=== PATIENT | male | born 1985 | race African-American/Black ===

== ENCOUNTER 2023-05-04 18:34 | Emergency (ER) | payer SELFPAY ==
--- NOTE | ~2023-05-04 | XR_ITS ---
EXAMINATION: XR CHEST CLINICAL INFORMATION: Chest pain COMPARISON: None available. TECHNIQUE: 2 views of the chest were obtained. FINDINGS: No significant abnormality is noted involving the heart, lungs, mediastinum, bony thorax or soft tissues. XR/XR chest 2V IMPRESSION: Unremarkable examination.
--- NOTE | 2023-05-04 19:21 | ED.GENADULT ---
HPI - General Adult General Chief complaint: Weakness Stated complaint: ?Covid Time Seen by Provider: 05/04/23 20:58 Source: patient and field counsel Limitations: no limitations History of Present Illness HPI narrative: 37 yo male no PMH does not see a doctor smokes every day no vaccines for COVID - started with n/v/d body aches, chest pain/trouble breathing and syncope x 2 since Thursday. Family has URI as well. + fevers/chills as well, poor PO intake. unsure if he has COVID MD complaint: viral symptoms Onset (ago): day(s) (4) Location: chest, back and abdomen Radiation: non-radiation Severity: moderate Quality: aching and constant Pain Consistency: constant Relieving factors: rest Exacerbating factors: movement Associated symptoms: chest pain, cough, fever/chills, headaches, loss of appetite, malaise, nausea/vomiting, syncope and weakness Treatments prior to arrival: none Related Data Previous Rx's Medication Instructions Recorded nirmatrelvir 300 mg (150 mg See Rx Instructions PO .COMPLEX 05/05/23 x2)-ritonavir 100 mg tablet,dose #30 ea pack (Paxlovid) ondansetron 4 mg disintegrating 4 mg PO Q8H PRN nausea and 05/05/23 tablet vomiting #20 tabs Allergies Allergy/AdvReac Type Severity Reaction Status Date / Time orange juice [ORANGE JUICE] Allergy Unknown UNKNOWN Unverified 03/22/20 16:16 Review of Systems Review of Systems: Constitutional : No Weight loss, pos Fever, pos Chills ENT/Mouth : No sore throat, No Rhinorrhea Eyes: No Eye Pain, No Swelling Cardiovascular : pos Chest Pain, pos SOB, no Dyspnea on Exertion, No Orthopnea, No Edema, No Palpitations Respiratory : No Cough, No Sputum Gastrointestinal : pos Nausea, pos Vomiting, pos Diarrhea, No abdominal Pain, No Hematochezia, No Melena Genitourinary : No Dysuria, No Urinary Frequency Musculoskeletal : No joint pain, pos Myalgias, No Joint Swelling Skin : No Skin Lesions, No rash Neuro : pos Weakness, No Numbness, pos Dizziness, No Headache, pos syncope Psych : No Anxiety/Panic, No Depression Heme/Lymph: No Bruising, No Lymphadenopathy Endocrine : No Polyuria, No Polydipsia All other systems reviewed and are negative PMFSH Past Medical History Attestation statement: The following information was validated with the patient. Medical History No pertinent past medical history Social History Social History (Updated 05/04/23 @ 21:31 by Janae Norwood DO) Alcohol intake: never Patient Tobacco Use Status: Current everyday Tobacco user Smoked in Last 30 Days: Yes Use of substances other than those prescribed or required for medical reasons: Yes Substance Use Type: Marijuana Last Used Substance: Weeks (ago) Advance Directives: No Advance Directives Information Provided: No Physical Exam ED Vital Signs: Vital Signs - 24 hr 05/04/23 19:24 05/04/23 20:51 05/04/23 22:05 Temperature 98.1 F 99.0 F Pulse Rate 82 88 67 Respiratory Rate 22 H 16 Blood Pressure 111/74 96/55 L Pulse Oximetry 97 98 Oxygen Delivery Method Room Air Room Air 05/04/23 23:40 05/05/23 00:10 Temperature 98.7 F Pulse Rate 68 Respiratory Rate 16 Blood Pressure 144/70 H 106/61 Pulse Oximetry 98 Oxygen Delivery Method Room Air BMI result Body Mass Index 23.2 Appearance: Alert. Oriented X3. No acute distress. Eyes: Pupils equal, round and reactive to light. ENT: Pharynx dry MM Neck: Normal inspection. Neck supple. CVS: Normal heart rate and rhythm. Pulses normal. Respiratory: No respiratory distress. Breath sounds normal. Abdomen: Soft and nontender. Skin: Skin warm and dry. Normal skin color. Normal skin turgor. Extremities: No lower extremity edema. No calf ttp Neuro: Oriented X 3. No motor deficit. No sensory deficit. Course Course Course Narrative: This is an RME: Additional HPI, ROS, PE not included below will be deferred to primary provider. This is a 76-prvs-sox-male, (ASL), unknown med problems, presenting to the ER for evaluation of fever, cough, diarrhea x 3 days. +COVID sick contacts at home. Admitting to SOB, AP Plan: COVID swab Reevaluation(s) Reevaluation #1: after discussion wants paxlovid Medications Administered Discontinued Medications Generic Name Dose Route Start Last Admin Trade Name Freq PRN Reason Stop Dose Admin Sodium Chloride 1,000 mls @ 999 mls/hr 05/04/23 21:15 05/04/23 22:38 Ns IV 05/04/23 22:15 Infused .Q1H1M ROSA Infusion Sodium Chloride 1,000 mls @ 999 mls/hr 05/04/23 23:00 05/04/23 22:59 Ns IV 05/05/23 00:00 999 mls/hr .Q1H1M ROSA Administration Ketorolac Tromethamine 15 mg 05/04/23 21:10 05/04/23 21:28 Ketorolac Tromethamine 15 Mg/Ml Vial IVPUSH 05/04/23 21:11 15 mg ONCE ONE Administration Ondansetron HCl 4 mg 05/04/23 21:10 05/04/23 21:28 Ondansetron Hcl 4 Mg/2 Ml Vial IVPUSH 05/04/23 21:11 4 mg ONCE ONE Administration Medical Decision Making Medical Decision Making [facility] Narrative: 37 yo male who is hearing impaired but otherwise no PMH and does not go to the doctors, vaccines not UTD here with c/o covid symptoms including chest pain/shorntess of breath and syncope x 2. At this time will need labs, IVF, supportive medications - EKG, troponin, ddimer. He is eating at the bedside right now. Will need PE work up and lyte workup - he also has T wave inversions and no known prior EKGs Differential Diagnosis Differential Diagnoses: The differential diagnosis associated with the presentation includes COVID, lyte abnormality, VTE, myocarditis Admission/Observation Consideration of admission/observation: Escalation of care including admission/observation considered feels much better, VS improving, no pneumonia - repeat trop normal, tolerating PO 2nd EKG normal - leads changed by tech as well Lab Data [facility] Lab Attestation statement: I reviewed the patient's lab results. 05/04/23 19:58 05/04/23 19:58 Labs: Lab Results 05/04/23 05/04/23 05/04/23 Range/Units 19:33 19:58 22:04 WBC 4.9 (4.8-10.8) X10*3/uL RBC 5.34 (4.60-5.80) X10*6/uL Hgb 15.5 (14.0-18.0) g/dl Hct 43.7 (42.0-52.0) % MCV 81.8 (80.0-98.0) fL MCH 29.0 (27.0-33.0) pg MCHC 35.5 (31.0-36.0) g/dl RDW 11.7 (11.0-16.0) % Plt Count 186 (160-400) X10*3/uL MPV 8.8 L (9.4-12.4) fL Immature Gran % (Auto) 0.2 (0.0-0.4) % Neut % (Auto) 60.9 (45-73) % Lymph % (Auto) 30.8 (20-40) % [place] % (Auto) 7.1 (2-11) % Eos % (Auto) 0.6 (0-4) % Baso % (Auto) 0.4 (0-2) % Lymph # (Auto) 1.5 (1.2-4.9) X10*3/uL [place] # (Auto) 0.4 (0.1-1.2) X10*3/uL Eos # (Auto) 0.0 (0.0-0.4) X10*3/uL Baso # (Auto) 0.0 (0.0-0.2) X10*3/uL Abs Immat Gran (auto) 0.01 (0.00-0.03) X10*3/uL Absolute Neuts (auto) 3.0 (2.0-8.3) x10*3/uL Absolute Nucleated RBC 0.000 (0.0-0.012) X10*3/uL Nucleated RBC % (auto) 0.0 (0.0-0.2) /100WBC D-Dimer High Sensitivty < 150 NG/ML Sodium 137 (135-145) mmol/L Potassium 3.3 (3.3-5.1) mmol/L Chloride 100 (96-108) mmol/L Carbon Dioxide 23 (22-29) mmol/L Anion Gap 17 (12-20) BUN 10 (9-16) mg/dL Creatinine 0.96 (0.5-1.4) mg/dL Estim Creat Clear Calc 114.3 Estimated GFR > 60 Random Glucose 87 (60-115) mg/dL Calcium 8.9 (8.4-10.2) mg/dL Magnesium 2.0 (1.6-2.6) mg/dL Total Bilirubin 0.4 (0.0-1.0) mg/dL Direct Bilirubin 0.1 (0.0-0.5) mg/dL AST 47 H (5-37) U/L ALT 36 (0-40) U/L Alkaline Phosphatase 70 (39-117) U/L Troponin I High Sens 4.8 (<3.5-35.0) ng/L Total Protein 8.0 (6.5-8.0) g/dL Albumin 4.4 (3.5-5.0) g/dL Lipase 33 (8-78) U/L Urine Color Urine Appearance Urine pH (5.0-9.0) Ur Specific Gem (1.005-1.025) Urine Protein (Neg-Trace) mg/dL Urine Glucose (UA) (Negative) mg/dL Urine Ketones (Negative) mg/dL Urine Blood (Negative) Urine Nitrite (Negative) Ur Leukocyte Esterase (Negative) Urine RBC (0-2) /HPF Urine WBC (0-5) /HPF Ur Squamous Epith Cells (0-2) /HPF Urine Bacteria (None Seen) Hyaline Casts (0-2) /LPF Influenza Type A (PCR) NEGATIVE (Negative) Influenza Type B (PCR) NEGATIVE (Negative) RSV RNA Qual (PCR) NEGATIVE (Negative) SARS-CoV-2 RNA (RT-PCR) POSITIVE A (Negative) 05/04/23 Range/Units 23:49 WBC (4.8-10.8) X10*3/uL RBC (4.60-5.80) X10*6/uL Hgb (14.0-18.0) g/dl Hct (42.0-52.0) % MCV (80.0-98.0) fL MCH (27.0-33.0) pg MCHC (31.0-36.0) g/dl RDW (11.0-16.0) % Plt Count (160-400) X10*3/uL MPV (9.4-12.4) fL Immature Gran % (Auto) (0.0-0.4) % Neut % (Auto) (45-73) % Lymph % (Auto) (20-40) % [place] % (Auto) (2-11) % Eos % (Auto) (0-4) % Baso % (Auto) (0-2) % Lymph # (Auto) (1.2-4.9) X10*3/uL [place] # (Auto) (0.1-1.2) X10*3/uL Eos # (Auto) (0.0-0.4) X10*3/uL Baso # (Auto) (0.0-0.2) X10*3/uL Abs Immat Gran (auto) (0.00-0.03) X10*3/uL Absolute Neuts (auto) (2.0-8.3) x10*3/uL Absolute Nucleated RBC (0.0-0.012) X10*3/uL Nucleated RBC % (auto) (0.0-0.2) /100WBC D-Dimer High Sensitivty NG/ML Sodium (135-145) mmol/L Potassium (3.3-5.1) mmol/L Chloride (96-108) mmol/L Carbon Dioxide (22-29) mmol/L Anion Gap (12-20) BUN (9-16) mg/dL Creatinine (0.5-1.4) mg/dL Estim Creat Clear Calc Estimated GFR Random Glucose (60-115) mg/dL Calcium (8.4-10.2) mg/dL Magnesium (1.6-2.6) mg/dL Total Bilirubin (0.0-1.0) mg/dL Direct Bilirubin (0.0-0.5) mg/dL AST (5-37) U/L ALT (0-40) U/L Alkaline Phosphatase (39-117) U/L Troponin I High Sens 3.1 (<3.5-35.0) ng/L Total Protein (6.5-8.0) g/dL Albumin (3.5-5.0) g/dL Lipase (8-78) U/L Urine Color Yellow Urine Appearance Cloudy Urine pH 6.0 (5.0-9.0) Ur Specific Gem 1.020 (1.005-1.025) Urine Protein Trace (Neg-Trace) mg/dL Urine Glucose (UA) Negative (Negative) mg/dL Urine Ketones Negative (Negative) mg/dL Urine Blood Moderate (2+) H (Negative) Urine Nitrite Negative (Negative) Ur Leukocyte Esterase Negative (Negative) Urine RBC 6-10 H (0-2) /HPF Urine WBC 11-20 H (0-5) /HPF Ur Squamous Epith Cells 6-10 (0-2) /HPF Urine Bacteria 2+ (None Seen) Hyaline Casts 0-2 (0-2) /LPF Influenza Type A (PCR) (Negative) Influenza Type B (PCR) (Negative) RSV RNA Qual (PCR) (Negative) SARS-CoV-2 RNA (RT-PCR) (Negative) Independent Interpretation I performed an independent interpretation of an: EKG and Plain X-Ray Interpretation: Rate: 78 Rhythm: NSR [place]: normal Normal P waves. Normal LAURO. Normal QRS complex. ST T wave : no MANISH, t wave inversions in inf and V4-V6 qTC: normal prior studies: no priors The study has been interpreted contemporaneously by me. EKG#2 Rate: 67 Rhythm: NSR [place]: normal Normal P waves. Normal LAURO. Normal QRS complex. ST T wave : no MANISH, t wave inversions improved qTC: normal prior studies: improved and changed from prior - tech notes she changed leads in wrong position The study has been interpreted contemporaneously by me. . Radiology Impression Discussion of test interpretation with radiology: I have reviewed the radiologist's reading. Independent Historian Clinical information obtained from an independent historian. History obtained from or confirmed by: Spouse Prescription Management I considered prescription management with: Antiviral and Other Discharge Plan Discharge Clinical Impression: COVID-19 Patient Disposition: Home, Self-Care Instructions: COVID-19 (Coronavirus Disease 2019) (ED) Additional Instructions: return for worsening pain, difficulty breathing, inability to eat or drink, you pass out again, you are so short of breath you cannot walk to your own bathroom. take tyenol or motrin as needed for pain or fever wear a mask protect others Prescriptions: New ondansetron 4 mg tablet,disintegrating 4 mg PO Q8H PRN (Reason: nausea and vomiting) Qty: 20 0RF Paxlovid 300 mg (150 mg x 2)-100 mg tablets,dose pack See Rx Instructions .ROUTE .COMPLEX Qty: 30 0RF Rx Instructions: take TWO 150 mg tablets of nirmatrelvir with ONE 100 mg tablet of ritonavir twice daily for 5 days Stand Alone Forms: Work/School Release
[2023-05-04 19:24] VITALS: BP 111/74; PULSE 82; RESP 22; TEMP 36.7; O2SAT 97; BMI 23.2
--- NOTE | 2023-05-04 19:27 | ECG_ITS ---
Test Reason : CP Blood Pressure : / mmHG Vent. Rate : 078 BPM Atrial Rate : 078 BPM P-R Int : 136 ms QRS Dur : 088 ms QT Int : 380 ms P-R-T Axes : 041 024 006 degrees QTc Int : 433 ms Normal sinus rhythm T wave abnormality, consider lateral ischemia Abnormal ECG No previous ECGs available Referred By: Ashlee Snell Electronically Signed By:PORSCHE ROCK MD
[2023-05-04 20:09] LABS: MANUAL DIFF FLAG NO
[2023-05-04 20:11] LABS: Basophils Percent Auto 0.4 % (0-2); Eosinophils Percent Auto 0.6 % (0-4); Hematocrit 43.7 % (42.0-52.0); Hemoglobin 15.5 g/dl (14.0-18.0); Imm Gran Abs Auto 0.01 X10*3/uL (0.00-0.03); Imm Gran Pct Auto 0.2 % (0.0-0.4); Lymphocytes Absolute Auto 1.5 X10*3/uL (1.2-4.9); Lymphocytes Percent Auto 30.8 % (20-40); Mean Corpuscular HGB Conc 35.5 g/dl (31.0-36.0); Mean Corpuscular Volume 81.8 fL (80.0-98.0); Mean Platelet Volume 8.8 fL (9.4-12.4); Monocytes Absolute Auto 0.4 X10*3/uL (0.1-1.2); Monocytes Percent Auto 7.1 % (2-11); Neutrophils Percent Auto 60.9 % (45-73); Platelet Count 186 X10*3/uL (160-400); Red Blood Count 5.34 X10*6/uL (4.60-5.80); Red Cell Distribution Width 11.7 % (11.0-16.0); White Blood Count 4.9 X10*3/uL (4.8-10.8)
[2023-05-04 20:24] LABS: Alanine Aminotransferase 36 U/L (0-40); Albumin Level 4.4 g/dL (3.5-5.0); Alkaline Phosphatase 70 U/L (39-117); Anion Gap 17 (12-20); Aspartate Amino Transferase 47 U/L (5-37); Bilirubin Direct 0.1 mg/dL (0.0-0.5); Bilirubin Total 0.4 mg/dL (0.0-1.0); Blood Urea Nitrogen 10 mg/dL (9-16); Calcium 8.9 mg/dL (8.4-10.2); Carbon Dioxide 23 mmol/L (22-29); Chloride 100 mmol/L (96-108); Creatinine Clr Calc Pharmacy 114.3; Estimated Glomerular Filt Rate > 60; Glucose Random 87 mg/dL (60-115); Lipase 33 U/L (8-78); Potassium 3.3 mmol/L (3.3-5.1); Sodium 137 mmol/L (135-145)
[2023-05-04 20:32] LABS: Troponin-I High Sensitivity 4.8 ng/L (<3.5-35.0)
[2023-05-04 20:45] LABS: Influenza A PCR NEGATIVE (Negative); Influenza B PCR NEGATIVE (Negative); Resp Syncy Virus RNA Qual PCR NEGATIVE (Negative); SARS COV2 PCR INHOUSE POSITIVE (Negative)
[2023-05-04 20:51] VITALS: PULSE 88
--- NOTE | 2023-05-04 21:05 | PC.NURSE ---
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 pt a&ox4. respirations even and unlabored. pt reports testing for covid at home and receiving a positive test. pt reports all over body aches, nausea and vomiting for 3 days. pt reports feeling weak. pt lung sounds clear bilaterally. pt o2 sats between 97-98 room air.
[2023-05-04] MEDS: 0.9 % Sodium Chloride 1,000 ML 999 ML IV ×2 (21:27→22:59)
[2023-05-04] MEDS: ondansetron HCL 4 MG/2 ML VIAL IVPUSH (21:28)
[2023-05-04] MEDS: Ketorolac Tromethamine 15 MG/ML VIAL IVPUSH (21:28)
--- NOTE | 2023-05-04 21:30 | PC.NURSE ---
iv established at this time, pt medicated per mar.
[2023-05-04 22:05] VITALS: BP 96/55; PULSE 67; RESP 16; TEMP 37.2; O2SAT 98
--- NOTE | 2023-05-04 22:07 | MHC.EDTECH ---
Pt D Dimer drawn and sent to lab ,vitals taken .
[2023-05-04 22:41] LABS: D Dimer High Sensitivity < 150 NG/ML
--- NOTE | 2023-05-04 23:18 | ECG_ITS ---
Test Reason : CHEST PAIN Blood Pressure : / mmHG Vent. Rate : 067 BPM Atrial Rate : 067 BPM P-R Int : 144 ms QRS Dur : 094 ms QT Int : 416 ms P-R-T Axes : 065 048 040 degrees QTc Int : 439 ms Normal sinus rhythm Nonspecific T wave abnormality Abnormal ECG Low voltage QRS Intra-ventricular conduction delay When compared with ECG of 04-MAY-2023 19:50, T wave inversion no longer evident in Lateral leads Referred By: Janae Norwood Electronically Signed By:PORSCHE ROCK MD
[2023-05-04 23:40] VITALS: BP 144/70; PULSE 68; RESP 16; TEMP 37.1; O2SAT 98
--- NOTE | 2023-05-04 23:53 | MHC.EDTECH ---
Repeated ekg taken and was read by Dr Norwood ,urine sample collected and trop drawn and sent to lab .0000 vitals taken ,pt is resting quietly and is on continuous monitoring and evaluation advisor .
[2023-05-04 23:56] LABS: Appearance Urine Cloudy; Color Urine Yellow; Glucose Urine UA Negative (Negative); Leukocyte Esterase Urine Negative (Negative); Nitrite Urine Negative (Negative); UMIC TRIGGER UACC YES; Urine Blood Moderate (2+) (Negative); Urine Ketones Negative (Negative); Urine Protein Trace mg/dL (Neg-Trace)
[2023-05-05 00:10] VITALS: BP 106/61
[2023-05-05 00:10] LABS: Bacteria Urine 2+ (None Seen); Hyaline Casts Urine 0-2 /LPF (0-2); UACC Culture Trigger YES
[2023-05-05 00:14] LABS: Troponin-I High Sensitivity 3.1 ng/L (<3.5-35.0)
== END 2023-05-05 01:04 | disposition home or self-care (01) ==
PROVIDERS: Physician Assistant Medical; Emergency Provider Emergency Medicine
DX: U07.1 COVID-19 (principal); R07.89 Other chest pain; R05.9 Cough, unspecified; R50.9 Fever, unspecified; R11.2 Nausea with vomiting, unspecified; R53.1 Weakness; R51.9 Headache, unspecified; Z79.899 Other long term (current) drug therapy
CPT/HCPCS: 0241U; 36415; 71046; 80048; 80076; 81001; 83690; 83735; 84484; 85025; 85379; 87086; 93005; 96361; 96374; 96375; 99284; 99285; J1885; J2405

== ENCOUNTER 2024-05-08 14:30 | Emergency (ER) | payer SELFPAY ==
--- NOTE | ~2024-05-08 | CT_ITS ---
EXAMINATION: CT HEAD WITHOUT CONTRAST CLINICAL INFORMATION: Left-sided facial droop, head trauma COMPARISON: None available. TECHNIQUE: Contiguous axial imaging was performed from the skull base to vertex without intravenous administration of contrast. This CT examination was performed using dose optimization techniques as appropriate, variously including the following: *Automated exposure control *Adjustment of mA and/or kV according to patient size (this includes techniques or standardized protocols for targeted exams where dose is matched to indication/reason for exam; i.e. extremities or head) *Use of iterative reconstruction technique DLP: 1681 mGy-cm RESULTS: There is no evidence of acute intracranial hemorrhage, acute large vessel infarct, midline shift or mass effect. The ji-white differentiation is preserved. The ventricles and sulci are within normal limits in size and configuration. There is no evidence of hydrocephalus. There are no extraaxial collections. Osseous structures are intact. Paranasal sinuses and mastoid air cells are well aerated. CT/CT head/brain wo IV con IMPRESSION: Unremarkable non-contrast CT of the brain. Electronically signed by: Irma Harris MD 05/08/2024 03:36 PM [facility]
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
[2024-05-08 14:32] VITALS: BP 125/68; PULSE 93; RESP 18; TEMP 36.6; O2SAT 98; BMI 27.4
--- NOTE | 2024-05-08 14:41 | ECG_ITS ---
Test Reason : AMS Blood Pressure : / mmHG Vent. Rate : 072 BPM Atrial Rate : 072 BPM P-R Int : 156 ms QRS Dur : 100 ms QT Int : 424 ms P-R-T Axes : 035 001 024 degrees QTc Int : 464 ms Normal sinus rhythm Normal ECG When compared with ECG of 04-MAY-2023 23:33, No significant change was found Referred By: Ashlee Snell Electronically Signed By:MEET CABRERA MD
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
[2024-05-08 15:20] LABS: MANUAL DIFF FLAG NO
[2024-05-08 15:21] LABS: Basophils Absolute Auto 0.1 X10*3/uL (0.0-0.2); Basophils Percent Auto 0.7 % (0-2); Eosinophils Absolute Auto 0.2 X10*3/uL (0.0-0.4); Eosinophils Percent Auto 1.6 % (0-4); Hematocrit 38.3 % (42.0-52.0); Hemoglobin 13.7 g/dl (14.0-18.0); Imm Gran Abs Auto 0.07 X10*3/uL (0.00-0.03); Imm Gran Pct Auto 0.5 % (0.0-0.4); Lymphocytes Absolute Auto 3.6 X10*3/uL (1.2-4.9); Lymphocytes Percent Auto 26.5 % (20-40); Mean Corpuscular HGB Conc 35.8 g/dl (31.0-36.0); Mean Corpuscular Hemoglobin 29.7 pg (27.0-33.0); Mean Corpuscular Volume 82.9 fL (80.0-98.0); Mean Platelet Volume 8.3 fL (9.4-12.4); Monocytes Absolute Auto 0.9 X10*3/uL (0.1-1.2); Monocytes Percent Auto 6.6 % (2-11); Neutrophils Absolute Auto 8.8 x10*3/uL (2.0-8.3); Neutrophils Percent Auto 64.1 % (45-73); Platelet Count 274 X10*3/uL (160-400); Red Blood Count 4.62 X10*6/uL (4.60-5.80); Red Cell Distribution Width 12.5 % (11.0-16.0); White Blood Count 13.7 X10*3/uL (4.8-10.8)
[2024-05-08 15:36] LABS: Alanine Aminotransferase 27 U/L (0-40); Albumin Level 4.4 g/dL (3.5-5.0); Alkaline Phosphatase 84 U/L (39-117); Anion Gap 16 (12-20); Aspartate Amino Transferase 46 U/L (5-37); Bilirubin Direct 0.2 mg/dL (0.0-0.5); Bilirubin Total 0.5 mg/dL (0.0-1.0); Blood Urea Nitrogen 14 mg/dL (9-16); Calcium 9.4 mg/dL (8.4-10.2); Carbon Dioxide 24 mmol/L (22-29); Chloride 106 mmol/L (96-108); Creatinine Clr Calc Pharmacy 99.1; Estimated Glomerular Filt Rate > 60; Glucose Random 102 mg/dL (60-115); Magnesium 1.9 mg/dL (1.6-2.6); Potassium 3.7 mmol/L (3.3-5.1); Sodium 142 mmol/L (135-145); Total Protein 7.7 g/dL (6.5-8.0)
[2024-05-08 15:37] LABS: Ethanol < 10 mg/dL
[2024-05-08 15:40] LABS: Partial Thromboplastin Time 28.8 SEC (26.0-36.8)
[2024-05-08 15:43] LABS: Troponin-I High Sensitivity 4.7 ng/L (<3.5-35.0)
[2024-05-08] MEDS: Ibuprofen 600 MG TABLET PO (16:31)
[2024-05-08] MEDS: Lidocaine HCl 1 % MPF 5 ML VIAL INFILTRATI (16:32)
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
[2024-05-08 18:00] VITALS: BP 126/84; PULSE 112; RESP 18; TEMP 37.2; O2SAT 98
[2024-05-08] MEDS: Lidocaine HCl 2 % MPF 5 ML VIAL 10 ML INFILTRATI (18:16)
== END 2024-05-08 19:16 | disposition home or self-care (01) ==
PROVIDERS: Physician Assistant Medical; Emergency Provider Emergency Medicine
DX: S01.511A Laceration without foreign body of lip, initial encounter (principal); S59.901A Unspecified injury of right elbow, initial encounter; S59.902A Unspecified injury of left elbow, initial encounter; R51.9 Headache, unspecified; M54.2 Cervicalgia; R41.82 Altered mental status, unspecified; F17.210 Nicotine dependence, cigarettes, uncomplicated; Y04.2XXA Assault by strike against or bumped into by another person, initial encounter; Y93.89 Activity, other specified; Y92.89 Other specified places as the place of occurrence of the external cause; Y99.8 Other external cause status; Z79.899 Other long term (current) drug therapy; Z51.81 Encounter for therapeutic drug level monitoring
CPT/HCPCS: 12011; 36415; 70450; 70486; 72125; 73070; 73100; 80048; 80076; 80307; 83735; 84484; 85025; 85610; 85730; 93005; 99284; J2003

== ENCOUNTER → 2024-05-08 14:41 | Outpatient (BNV) | payer SELFPAY | PROVIDERS: Emergency Provider Emergency Medicine; Visit Provider Internal Medicine Cardiovascular Disease | DX: R41.82 Altered mental status, unspecified (principal) | CPT/HCPCS: 93010 ==